=== PATIENT | female | born 1990 | race Caucasian/White ===

== ENCOUNTER 2025-02-20 08:50 | Emergency (ER) | payer BC, SELFPAY ==
[2025-02-20 08:59] VITALS: BP 118/69
--- NOTE | 2025-02-20 09:33 | ED.GENMED ---
History of Present Illness
General
Chief Complaint: Eye Problems
Source: patient
Time Seen by Provider: 02/20/25 09:06
History of Present Illness
History of Present Illness:
34-year-old female with past medical history of anxiety/depression presenting to the emergency department for evaluation after she felt as if she got her contact lens stuck in her left eye, continued foreign body sensation. Patient does report that
she believes it is possible that she got the contact lens out of her left eye but a small piece might remain. She does note increased tearing, photosensitivity and foreign body sensation. Patient states that this is the first time she is ever
fallen asleep with contact lens in her eye. Currently has sunglasses in place. No other complications.
Past History
Past History
ED Past Medical History: Psychiatric
ED Past Surgical History: Cholecystectomy
Social History
Tobacco: Non-smoker
Alcohol: Occasional
Drug: None
Personal: Other (Engaged)
Living: with family
Employment: Employed
Review of Systems
Review of Systems
All Other Systems: ROS reviewed and negative except as documented in HPI and ROS
Phy Exam
Physical Exam
Physical Exam:
GENERAL: Alert , in no apparent distress
EYE: Left eye: Conjunctiva mildly injected, increased tearing noted. Both pupils are 4 mm bilateral, EOMI. No hyphema or signs of trauma, no periorbital erythema, edema/ecchymosis. Upper and lower lids were inverted and no foreign bodies
visualized. Fluorescein stain did show 1 mm uptake at the 11 o'clock position along the rim of the iris, still no foreign body noted.
VISUAL ACUITY: RIGHT 20/50, LEFT 20/60, BOTH 20/40
Head: Normocephalic atraumatic
NECK: Supple,
ENT: mmm.
LUNGS: no acute respiratory distress
NEUROLOGICAL: Alert and oriented
SKIN: Warm and dry, skin intact.
MUSCULOSKELETAL: well perfused.
PSYCH: Normal and appropriate interaction.
Scores
Heart Failure Risk
Heart Failure Risk Score: Not Applicable
Heart Score for Chest Pain Patients
STEMI patient?: Not applicable
Withdrawal Assessment of Alcohol
Withdrawal Assessment Completed?: Not applicable
Course
Orders/Labs/Results
Orders:
Orders
02/20/25 09:25
Fluorescein Sodium [Ful-Ro] 2 mg .ROUTE .STK-MED ONE
Tetracaine HCl [Tetracaine 0.5% Ophthalmic Solution] 1 drop .ROUTE .STK-MED ONE
02/20/25 09:35
Visual Acuity- Treatment ONCE
Vital Signs
Initial and Last Documented VS:
Initial Vital Signs
Temp Pulse Resp BP Pulse Ox
98.6 F 54 14 118/69 100
02/20/25 08:59 02/20/25 08:59 02/20/25 08:59 02/20/25 08:59 02/20/25 08:59
Last Documented Vital Signs
Temp Pulse Resp BP Pulse Ox
98.6 F 54 14 118/69 100
02/20/25 08:59 02/20/25 08:59 02/20/25 08:59 02/20/25 08:59 02/20/25 08:59
MDM/Problems Addressed
Differential Diagnosis Includes:
Corneal abrasion, corneal ulceration, foreign body, iritis, keratitis, blepharitis
MDM/Problems Addressed:
34-year-old female presenting to the ER for foreign body sensation to the left eye, excellently fell asleep with contact lens in. Patient believes she did get most of the contact lens out could potentially be a small piece within the left eye.
Both lids were inverted
*Critical Care Note
Total Time (30-74mins, 75-104mins- exclusive of procedures): Not Applicable
ED Attending Note
-
Portions of this chart may have been created with voice recognition software.� Occasional wrong word or��sound alike� substitutions may have occurred due to the inherent limitations of voice recognition software.
Discharge Plan
Departure
Patient Disposition: Home (Routine Discharge)
Date of Disposition: 02/20/25
Time of Disposition: 09:33
Patient with high blood pressure during this ER visit?: No
Discharge Problem:
Corneal abrasion of left eye due to contact lens
Instructions: Corneal Abrasion (DC)
Prescriptions:
New
ofloxacin [Ocuflox] 0.3 % drops
2 drp ophthalmic (eye) QID 7 Days Qty: 10 0RF
Referrals:
UNKNOWN - PT DOES,NOT KNOW [Family Provider] -
Billie Marcial MD [Active] - (Specimen Transporter-please contact for follow-up visit)
Interventions
Interventions:
*Risk Screen - Suicide Last Done: 02/20/25 09:51
*General Assessment Last Done: 02/20/25 09:51
*Neglect/Abuse Screening Last Done: 02/20/25 09:51
*ED- Fall Risk Assessment Last Done: 02/20/25 09:51
*ED COVID-19 Vaccine History Last Done: 02/20/25 09:51
*Nursing Disposition Last Done: 02/20/25 09:52
Discharge Date and Time
Discharge Date/Time: 02/20/25 09:52
Print Language: UKRAINIAN
== END 2025-02-20 09:52 | disposition home or self-care (01) ==
LOC: EMR 08:50
PROVIDERS: EMERGENCY PHYSICIAN Student in an Organized Health Care Education/Training Program
DX: H18.822 Corneal disorder due to contact lens, left eye (principal); Z90.49 Acquired absence of other specified parts of digestive tract
CPT/HCPCS: 99282

== ENCOUNTER 2025-03-01 15:22 | Emergency (ER) | payer BC, SELFPAY ==
[2025-03-01 15:25] VITALS: BP 146/109
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
== END 2025-03-01 16:17 | disposition home or self-care (01) ==
LOC: EMR 15:22
PROVIDERS: EMERGENCY PHYSICIAN Emergency Medicine
DX: Z76.0 Encounter for issue of repeat prescription (principal); Z90.49 Acquired absence of other specified parts of digestive tract
CPT/HCPCS: 99282